=== PATIENT | female | born 1960 | race Caucasian/White ===

== ENCOUNTER → 2019-09-03 | Day surgery (SDC) | payer OTHER ==
[~2019-09-03] MED LIST: ELIQUIS5 MG PO; OMEPRAZOLE40 MG PO
[2019-09-03 10:55] LABS: HEMOGLOBIN 11.9 gm/dL (12.0-15.0); MCH 30.1 pg (26.0-34.0); MCHC 34.1 g/dL (28.0-37.0); MCV 88.4 fL (80.0-100.0); MPV 6.5 fl. (7.2-11.1); RBC 3.96 mil/uL (4.20-5.00); RDW-CV 13.5 % (10.5-14.5); WBC 4.3 thou/uL (4.0-11.0)
[2019-09-03 11:00] LABS: CALCIUM 8.2 mg/dL (8.5-10.1); CREATININE 0.7 mg/dL (0.6-1.3); POTASSIUM 3.9 mmol/L (3.5-5.1)
[2019-09-03 11:01] LABS: PROTIME 10.4 Seconds (9.20-11.50)
--- NOTE | 2019-09-03 14:21 | EKG ---
[place] [address] ELECTROCARDIOGRAM REPORT Name: VINAY PAULINO Room: [facility]#: [id number] Admission: 09/03/19 Attend Phys: Casper Singleton MD Discharge: Date of : 56 Date of Service: 09/03/19 1051 Report #: [id number] THIS REPORT FOR: //name// [facility] Test Date: 2019-09-03 Test Time: 10:51:07 Pat Name: VINAY PAULINO Department: Room: Gender: F [employer]: : 1960 Requested By: Young Silva Order Number: [id number] Damian MD: Everardo Hui Measurements Intervals [place] Rate: 58 P: 25 WI: 188 QRS: -10 QRSD: 98 T: 1 QT: 422 QTc: 415 Interpretive Statements Sinus rhythm Left ventricular hypertrophy 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
== END | disposition home or self-care (01) ==
LOC: M.SUR 10:17
PROVIDERS: Anesthesiology
DX: K22.711 Barrett's esophagus with high grade dysplasia (principal); K44.9 Diaphragmatic hernia without obstruction or gangrene; I48.91 Unspecified atrial fibrillation; Z98.890 Other specified postprocedural states; Z79.899 Other long term (current) drug therapy; Z86.73 Personal history of transient ischemic attack (TIA), and cerebral infarction without residual deficits; Z79.01 Long term (current) use of anticoagulants